=== PATIENT | female | born 1945 | race Caucasian/White ===

== ENCOUNTER 2024-06-06 20:20 | Emergency (ER) | payer OTHER, SELFPAY ==
[2024-06-06 20:28] VITALS: BP 134/65
[2024-06-06] MEDS: TYLENOL 1000 MG PO (23:25)
[2024-06-07 00:07] VITALS: BMI 30.4
[2024-06-07 00:10] VITALS: BP 147/75
--- NOTE | 2024-06-07 00:54 | ED.GENMED ---
History of Present Illness
General
Chief Complaint: Musculo-Skeletal Complaint
Source: patient
Exam Limitations: none
Time Seen by Provider: 06/07/24 00:37
History of Present Illness
History of Present Illness:
This is a 78 year old female that comes in with c/o right leg pain. States that she feels that she over did it with decorating. States that she has started with right groin pain. Then Monday night it got worse. States that she went to the PCP and
was started on Prednisone and Tylenol. Sates that she could still walk but certain ways that she would move her leg she had pain. Then today she went to the [place] and when she got up to pull up her pants she had excruciating pain that went down her
thigh. States that she heard something snap. States that know she has to help lift the leg. States that she is worried about her hip. Denies any fever, chills, chest pain, SOB, abd pain, nausea, vomiting, diarrhea, headache, dizziness, urinary
burning.
Past History
Past History
ED Past Medical History: Arrthythmia (PVC's), Asthma, HTN and NIDDM
ED Past Surgical History: and Tonsilectomy
Social History
Tobacco: Non-smoker
Alcohol: None
Drug: None
Personal:
Living: alone
Review of Systems
Review of Systems
All Other Systems: ROS reviewed and negative except as documented in HPI and ROS
Constitutional: Reports no symptoms; Denies fever or chills
EENT: Reports no symptoms
Respiratory: Denies cough or trouble breathing
Cardiac: Reports no symptoms; Denies chest pain
ABD/GI: Reports no symptoms; Denies abdominal pain, nausea, vomiting or diarrhea
: Reports no symptoms; Denies dysuria, frequency or urgency
Musculoskeletal: Reports joint pain (Right hip/pelvic pain that shots down the right leg. )
Skin: Reports no symptoms
Neurological: Reports no symptoms; Denies dizzy or headache
Psychiatric: Reports no symptoms
Phy Exam
General Physical Exam
General Presentation: well appearing and no apparent distress
General age: appears stated age
General Skin: warm and dry
General Habitus: elderly
General Mental: alert
General Hydration: appears well hydrated
ENT Exam
ENT Exam: TM's normal, pharynx normal and neck supple
Eye Exam
Eye Exam: EOMI
Cardiovascular Exam
Cardiovascular Exam: regular rate/rhythm, no edema and normal peripheral pulses
Pulmonary Exam
Pulmonary Exam: lungs clear, no respiratory distress, no rales, chest non tender, no crackles, no rhonchi, no wheezing and no cough
Musculoskeletal Exam
Musculoskeletal Exam: other (Negative for hip tenderness , Patient able to flex knee. No palpable tenderness of the thigh)
Skin Exam
Skin Exam: normal color, warm/dry, no rash and no petechia
Psychiatric Exam
Psychiatric Exam: normal mood/affect
Course
Orders/Labs/Results
Orders:
Orders
06/06/24 23:16
Acetaminophen [Tylenol] 1,000 mg PO NOW STA
06/07/24 00:52
CT Lower Ext W/o Iv Cont Rt Urgent
Comment:
Reason For Exam: rIGHT HIP LEG PAIN
06/07/24 00:53
Ibuprofen [Motrin] 600 mg PO NOW STA
Vital Signs
Initial and Last Documented VS:
Initial Vital Signs
Temp Pulse Resp BP Pulse Ox
98.2 F 73 16 134/65 97
06/06/24 20:28 06/06/24 20:28 06/06/24 20:28 06/06/24 20:28 06/06/24 20:28
Last Documented Vital Signs
Temp Pulse Resp BP Pulse Ox
98.2 F 111 18 146/94 97
06/06/24 20:28 06/07/24 01:23 06/07/24 01:23 06/07/24 01:23 06/07/24 01:23
MDM/Problems Addressed
Differential Diagnosis Includes:
Fracture hip, Pelvic fracture. Musculoskeletal pain
MDM/Problems Addressed:
This is a 78 year old female that comes in with c/o right leg pain. States that she heard something snap when she got up off the toilet today. States that she had had groin pain prior to this and the PCP put her on Steroids and Tylenol.
Will get CT of the right lower extremity.
Back to see patient. Reviewed CT report. Patient to follow up with the youth care specialist. Patient can use Tylenol as needed for Pain, heat or ice and return with any concerns.
Chronic conditions affecting care:
NA
Acute Exacerbation and/or Progression of Chronic Illness:
NA
*Radiology
Radiology exam reviewed: radiology read reviewed (CT night Hawk0 Possible avulsion fracture along the posterior right acetabulm (seres 202 image 50). No significant soft tissue abnormality. Diverticulosis. )
*Pulse Oximetry
Patient hypoxic: no
*EKG
Interpreted by ED Provider?: NA
Rate: EKG- N/A
*Gun Mechanic Interpretation
Rate: Gun Mechanic- N/A
*Critical Care Note
Total Time (30-74mins, 75-104mins- exclusive of procedures): Not Applicable
ED Attending Note
-
Portions of this chart may have been created with voice recognition software.� Occasional wrong word or��sound alike� substitutions may have occurred due to the inherent limitations of voice recognition software.
Discharge Plan
Departure
Patient Disposition: Home (Routine Discharge)
Date of Disposition: 06/07/24
Time of Disposition: 01:51
Patient with high blood pressure during this ER visit?: Yes
Condition: Good
Covid-19: Not Applicable
Discharge Problem:
Avulsion fracture of bone
Instructions: Avulsion Fracture (DC), BLOOD PRESSURE
Prescriptions:
No Action
metoprolol succinate
25 mg PO DAILY
prednisone
10 mg PO DAILY
Rx Instructions:
steroid taper,x12 days.Pt started on 06/06/2024 for right leg pain,Rx from PCP.
Referrals:
Rigoberto Bates MD [Family Provider] -
Luis Sawyer MD [Active] - Follow up in 2-3 days
Activity Restrictions/Additional Instructions:
As discussed, your CT shows that there is a possible Avulsion fracture of the acetabulum. This is the socket that the head of the femur sits in. Please follow up with the youth care specialist for further evaluation. You may use Tylenol 1000mg
every 6 hours for pain. Heat or ice which ever makes you feel better. This may just take time to feel better. IF YOU HAVE ANY OTHER CONCERNS PLEASE RETURN TO THE EMERGENCY ROOM.
Interventions
Interventions:
*Risk Screen - Suicide Last Done: 06/06/24 20:28
*General Assessment Last Done: 06/06/24 20:28
*Neglect/Abuse Screening Last Done: 06/06/24 20:28
ED- Fall Risk Assessment Last Done: 06/06/24 23:47
*ED COVID-19 Vaccine History Last Done: 06/06/24 23:47
ED-Musculoskeletal Assessment Last Done: 06/06/24 23:42
Discharge Date and Time
Print Language: BENGALI
[2024-06-07 02:06] VITALS: BP 148/72
== END 2024-06-07 02:07 | disposition home or self-care (01) ==
LOC: EMR 20:20
PROVIDERS: EMERGENCY PHYSICIAN Student in an Organized Health Care Education/Training Program; FAMILY PHYSICIAN Family Medicine
DX: S32.491A Other specified fracture of right acetabulum, initial encounter for closed fracture (principal); X58.XXXA Exposure to other specified factors, initial encounter; J45.909 Unspecified asthma, uncomplicated; I10 Essential (primary) hypertension; E11.9 Type 2 diabetes mellitus without complications
CPT/HCPCS: 99284; 73700